=== PATIENT | male | born 1945 | race Caucasian/White ===

== ENCOUNTER 2023-10-08 09:27 | Inpatient (IN) | payer OTHER ==
[2023-10-08] MEDS ORDERED: ACETAMINOPHEN INJECTION 100 ML IVPB ONE ×2 (10:32→18:06)
[2023-10-08] MEDS: ACETAMINOPHEN 1000 MG/100 ML BAG IVPB ONE ×2 (10:51→18:08)
[2023-10-08 10:56] LABS: BASO % 0.3 % (0-2.0); HEMATOCRIT 43.9 % (35.4-49); LYMPH % 5.9 % (8-40); MCH 29.7 pg (25.7-33.7); MCHC 34.1 g/dl (32.0-35.9); MEAN CELL VOLUME 87.1 fl (80-96); MEAN PLT VOLUME 8.9 fl (7.5-11.1); MONO % 9.9 % (3.8-10.2); NEUT % 83.9 % (42.8-82.8); PLATELET COUNT 121 10^3/uL (134-434); RBC 5.05 M/mm3 (4.00-5.60); WHITE BLOOD COUNT 18.5 K/mm3 (4.0-10.0)
[2023-10-08 11:01] LABS: VENOUS BASE EXCESS -0.3 mmol/L (-2-2); VENOUS O2 SATURATION 69.5 % (70-80); VENOUS PCO2 41.7 mmHg (38-52); VENOUS PH 7.39 (7.310-7.410)
[2023-10-08 11:04] LABS: INR 1.4 (0.83-1.09); PROTHROMBIN TIME (PATIENT) 16.2 SEC (9.7-13.0)
[2023-10-08 11:06] LABS: ACTIVATED PTT 29.3 SECONDS (25.2-36.5)
[2023-10-08 11:14] LABS: POTASSIUM 4.1 mmol/L (3.5-5.1)
[2023-10-08 11:16] LABS: ALBUMIN 3.5 g/dl (3.4-5.0); BLOOD UREA NITROGEN 14.3 mg/dL (7-18)
[2023-10-08 11:21] LABS: BILIRUBIN,TOTAL 2.3 mg/dL (0.2-1); TOT PROT 6.9 g/dl (6.4-8.2)
[2023-10-08 11:29] LABS: LACTIC ACID 2.2 mmol/L (0.4-2.0)
[2023-10-08] MEDS: SODIUM CHLORIDE 0.9% 500 ML INFUS.BAG IV ONE (12:43)
[2023-10-08] MEDS ORDERED: PIPERACILLIN/TAZOB 4.5 GM 4.5 GM in DEXTROSE 5%-WATER 100 ML IVPB ONE (14:09)
[2023-10-08 14:11] LABS: N-TERMINAL BNP 400.9 pg/ml (5-450)
[2023-10-08] MEDS ORDERED: LACTATED RINGERS SOLUTION 1,000 ML/1,000 ML INFUS.BAG IV SCH (14:15)
[2023-10-08] MEDS ORDERED: PIPERACILLIN/TAZOB 4.5 GM 4.5 GM/100 ML BAG IVPB ONE (14:19)
[2023-10-08 14:49] LABS: EPI CELLS 17 /uL (0-25.1); HYALINE CASTS 4 /uL (0-3.1); PH,URINE 5.5 (5.0-8.0); URINE APPEARANCE CLEAR; URINE BACTERIA 3 /uL (0-1359); URINE BILIRUBIN NEGATIVE (NEGATIVE); URINE COLOR ORANGE; URINE GLUCOSE (UA) NEGATIVE (NEGATIVE); URINE KETONE TRACE (NEGATIVE); URINE LEUK ESTERASE NEGATIVE (NEGATIVE); URINE NITRITE NEGATIVE (NEGATIVE); URINE PROTEIN 2+ (NEGATIVE); URINE RBC 20 /uL (0-23.9); URINE WBC 15 /uL (0-25.8)
[2023-10-08] MEDS ORDERED: BUPIVACAINE HCL/PF 0.25% (2.5MG/ML) 10 ML VIAL ONE (14:50)
[2023-10-08] MEDS ORDERED: PROPOFOL 40 ML ONE (15:43)
[2023-10-08] MEDS ORDERED: SUCCINYLCHOLINE CHLORIDE 200 MG/10 ML SYRINGE ONE (15:43)
[2023-10-08] MEDS ORDERED: MIDAZOLAM HCL 2 MG/2 ML SINGLE DOSE VIAL ONE (15:45)
[2023-10-08] MEDS ORDERED: FENTANYL CITRATE/PF 50 MCG/ML VIAL ONE ×4 (15:45→17:59)
[2023-10-08] MEDS ORDERED: PIPERACILLIN/TAZOBACTAM 3.375 GM VIAL IVPB ONE (15:46)
[2023-10-08] MEDS ORDERED: SUGAMMADEX SODIUM 200 MG/2 ML VIAL ONE ×2 (15:47→17:09)
[2023-10-08] MEDS ORDERED: DEXAMETHASONE SOD PHOSPHATE 4 MG/1 ML VIAL ONE (16:04)
[2023-10-08] MEDS: PIPERACILLIN/TAZOBACTAM 3.375 GM VIAL IVPB ONE (16:09)
[2023-10-08] MEDS ORDERED: ROCURONIUM BROMIDE 50 MG/5 ML SYRINGE ONE (16:23)
[2023-10-08] MEDS: BUPIVACAINE HCL/PF 2.5 MG/ML - 30 ML VIAL IJ ONE (16:45)
[2023-10-08] MEDS ORDERED: LACTATED RINGERS SOLUTION 1,000 ML IV SCH (17:45)
[2023-10-08] MEDS ORDERED: ONDANSETRON 4 MG/2 ML VIAL IVPUSH PRN ×2 (17:45→17:53)
[2023-10-08] MEDS: LACTATED RINGERS SOLUTION 1,000 ML IV SCH (18:00)
[2023-10-08] MEDS: ACETAMINOPHEN 1000 MG/100 ML BAG IVPB SCH (18:08)
[2023-10-08] MEDS ORDERED: MUPIROCIN 2% TOPICAL OINTMENT FOR DECOLONIZATION NS SCH (22:00)
[2023-10-08] MEDS ORDERED: CHLORHEXIDINE GLUCONATE 4% CLEANSER FOR DECOLONIZATION TP SCH (22:00)
[2023-10-08] MEDS: TAMSULOSIN HCL 0.4 MG CAP PO ONE (22:11)
[2023-10-08] MEDS: MUPIROCIN 2% TOPICAL OINTMENT FOR DECOLONIZATION NS SCH (22:11)
[2023-10-08] MEDS: CHLORHEXIDINE GLUCONATE 4% CLEANSER FOR DECOLONIZATION TP SCH (22:12)
[2023-10-08] MEDS: HEPARIN NA (PORCINE) 5,000 UNITS/ML 1ML VIAL SQ SCH (22:12)
[2023-10-08] MEDS: PIPERACILLIN/TAZOB 4.5 GM 4.5 GM in DEXTROSE 5%-WATER 100 ML IVPB SCH (23:59)
[2023-10-09 06:21] VITALS: BMI 50.6
[2023-10-09 06:37] LABS: BASO % 0.2 % (0-2.0); HEMATOCRIT 42.7 % (35.4-49); HEMOGLOBIN 14.1 GM/dL (11.7-16.9); LYMPH % 3.6 % (8-40); MCH 29.3 pg (25.7-33.7); MCHC 33.1 g/dl (32.0-35.9); MEAN CELL VOLUME 88.5 fl (80-96); MEAN PLT VOLUME 9.1 fl (7.5-11.1); MONO % 5.6 % (3.8-10.2); NEUT % 90.6 % (42.8-82.8); PLATELET COUNT 109 10^3/uL (134-434); RBC 4.82 M/mm3 (4.00-5.60); RDW 14.3 % (11.9-15.9); WHITE BLOOD COUNT 12.6 K/mm3 (4.0-10.0)
[2023-10-09 07:10] LABS: POTASSIUM 4.1 mmol/L (3.5-5.1)
[2023-10-09 07:13] LABS: BLOOD UREA NITROGEN 10.7 mg/dL (7-18); CALCIUM 8.3 mg/dL (8.5-10.1)
[2023-10-09 07:14] LABS: MAGNESIUM 2.5 mg/dL (1.8-2.4)
[2023-10-09 07:16] LABS: CREATININE 0.7 mg/dL (0.55-1.3); PHOSPHOROUS 2.6 mg/dL (2.5-4.9)
[2023-10-09] MEDS: ATORVASTATIN CA 10 MG TABLET (FP) PO SCH (09:49)
[2023-10-09] MEDS: MAGNESIUM OXIDE 400 MG TABLET (FP) PO SCH (09:49)
[2023-10-09] MEDS: METOPROLOL TARTRATE 50 MG TABLET (FP) PO SCH (09:49)
[2023-10-09] MEDS: ASPIRIN COATED 81 MG TABLET.EC PO SCH (09:49)
[2023-10-09] MEDS: PANTOPRAZOLE 20 MG TABLET PO SCH (09:50)
[2023-10-09] MEDS: amLODIPine BESYLATE 5 MG TABLET (FP) PO SCH (09:50)
[2023-10-09] MEDS ORDERED: PATIENT'S OWN MEDICATION (NON-FORMULARY) (Amlodipine/Atorvastatin [Amlodipine-Atorvast 5-1 PO SCH (10:00)
[2023-10-09] MEDS ORDERED: ALBUTEROL SO4 2.5/IPRATROPIUM 0.5 INH SOL 3 ML VIAL.NEB. NEB PRN (11:18)
[2023-10-09] MEDS ORDERED: ONDANSETRON 4 MG/2 ML VIAL IVPUSH PRN (17:29)
[2023-10-09] MEDS: PIPERACILLIN/TAZOB 4.5 GM 4.5 GM in DEXTROSE 5%-WATER 100 ML IVPB SCH (22:09)
[2023-10-09] MEDS: HEPARIN NA (PORCINE) 5,000 UNITS/ML 1ML VIAL SQ SCH (22:09)
[2023-10-10] MEDS: ACETAMINOPHEN 1000 MG/100 ML BAG IVPB ONE (03:36)
[2023-10-10] MEDS ORDERED: AMOX TR/POT CLAV 875MG/125MG TABLETS (FP) PO SCH (08:00)
[2023-10-10] MEDS: METOPROLOL TARTRATE 50 MG TABLET (FP) PO SCH (09:25)
[2023-10-10] MEDS: MAGNESIUM OXIDE 400 MG TABLET (FP) PO SCH (09:25)
[2023-10-10] MEDS: ASPIRIN COATED 81 MG TABLET.EC PO SCH (09:25)
[2023-10-10] MEDS: PANTOPRAZOLE 20 MG TABLET PO SCH (09:26)
[2023-10-10] MEDS: amLODIPine BESYLATE 5 MG TABLET (FP) PO SCH (09:26)
[2023-10-10] MEDS: ATORVASTATIN CA 10 MG TABLET (FP) PO SCH (09:26)
[2023-10-10 09:32] LABS: EOS % 0.5 % (0-4.5); HEMOGLOBIN 13.7 GM/dL (11.7-16.9); LYMPH % 8.8 % (8-40); MCH 29.9 pg (25.7-33.7); MCHC 34.2 g/dl (32.0-35.9); MEAN CELL VOLUME 87.4 fl (80-96); MEAN PLT VOLUME 9.1 fl (7.5-11.1); MONO % 6.5 % (3.8-10.2); NEUT % 84.2 % (42.8-82.8); PLATELET COUNT 145 10^3/uL (134-434); RBC 4.58 M/mm3 (4.00-5.60); RDW 14.1 % (11.9-15.9); WHITE BLOOD COUNT 11.1 K/mm3 (4.0-10.0)
[2023-10-10 09:59] LABS: POTASSIUM 4.2 mmol/L (3.5-5.1)
[2023-10-10 10:09] LABS: CALCIUM 8.5 mg/dL (8.5-10.1)
[2023-10-10 10:10] LABS: BLOOD UREA NITROGEN 14.7 mg/dL (7-18); MAGNESIUM 2.5 mg/dL (1.8-2.4)
[2023-10-10 10:14] LABS: BILIRUBIN,TOTAL 0.9 mg/dL (0.2-1); CREATININE 0.7 mg/dL (0.55-1.3); TOT PROT 6.1 g/dl (6.4-8.2)
[2023-10-10 10:59] LABS: ALBUMIN 2.8 g/dl (3.4-5.0)
[2023-10-10] MEDS ORDERED: LIDOCAINE 5% TOPICAL PATCH TP SCH (11:45)
[2023-10-10] MEDS: ACETAMINOPHEN 1000 MG/100 ML BAG IVPB PRN (11:53)
[2023-10-10] MEDS: TAMSULOSIN HCL 0.4 MG CAP PO ONE (11:54)
[2023-10-10] MEDS: LIDOCAINE 4% PATCH TP SCH (11:54)
[2023-10-10] MEDS: LIDOCAINE PATCH REMOVAL MC SCH (22:26)
[2023-10-11 08:22] LABS: HEMATOCRIT 40.1 % (35.4-49); HEMOGLOBIN 13.5 GM/dL (11.7-16.9); MCH 29.7 pg (25.7-33.7); MCHC 33.7 g/dl (32.0-35.9); MEAN CELL VOLUME 88.2 fl (80-96); MEAN PLT VOLUME 8.9 fl (7.5-11.1); PLATELET COUNT 145 10^3/uL (134-434); RBC 4.54 M/mm3 (4.00-5.60); RDW 13.5 % (11.9-15.9); WHITE BLOOD COUNT 8.2 K/mm3 (4.0-10.0)
[2023-10-11 08:39] LABS: POTASSIUM 4.1 mmol/L (3.5-5.1)
[2023-10-11 08:42] LABS: CALCIUM 8.8 mg/dL (8.5-10.1)
[2023-10-11 08:43] LABS: ALBUMIN 2.7 g/dl (3.4-5.0); BLOOD UREA NITROGEN 12.7 mg/dL (7-18); MAGNESIUM 2.3 mg/dL (1.8-2.4)
[2023-10-11 08:45] LABS: CREATININE 0.7 mg/dL (0.55-1.3)
[2023-10-11 08:46] LABS: BILIRUBIN,TOTAL 0.8 mg/dL (0.2-1); TOT PROT 5.8 g/dl (6.4-8.2)
[2023-10-11] MEDS: TAMSULOSIN HCL 0.4 MG CAP PO SCH (09:27)
[2023-10-11] MEDS: ACETAMINOPHEN 325 MG TABLET (FP) PO SCH (11:56)
[2023-10-11 12:29] VITALS: RESP 18
[2023-10-11 15:18] VITALS: BP 154/71; PULSE 84; TEMP 98.3
[2023-10-11] MEDS: AMOX TR/POT CLAV 500MG/125MG TABLETS (FP) PO SCH (17:37)
== END 2023-10-11 17:50 | disposition home health service (06) | DRG 398 ==
LOC: JER 09:27 → JERBED 14:11 → JICU 19:36 → J8W 10-09 17:28
PROVIDERS: ADMIT Internal Medicine; ATTEND Nurse Practitioner Family
PROC: 0W9G40Z Drainage of Peritoneal Cavity with Drainage Device, Percutaneous Endoscopic Approach (ICD-10-PCS; 2023-10-08)
PROC: 0DTJ4ZZ Resection of Appendix, Percutaneous Endoscopic Approach (ICD-10-PCS; principal; 2023-10-08 15:00)
DX: K35.211 Acute appendicitis with generalized peritonitis, with perforation and abscess (principal); E87.20 Acidosis, unspecified; Z68.43 Body mass index [BMI] 50.0-59.9, adult; E66.01 Morbid (severe) obesity due to excess calories; I10 Essential (primary) hypertension; N40.0 Benign prostatic hyperplasia without lower urinary tract symptoms; R33.9 Retention of urine, unspecified; D72.829 Elevated white blood cell count, unspecified
CPT/HCPCS: 0241U-QW; 36415; 70450-TC; 71045-TC-FY; 71260-TC; 72125-TC; 72170-TC-FY; 74177-TC; 80048; 80053; 81003; 82803; 83605; 83735; 83880; 84100; 84484; 85025; 85610; 85730; 86140; 86850; 86900; 86901; 87040; 87070; 87075; 87076; 87086; 87186; 87205; 88304-TC; 93005; 93010; 93971-TC; 94010; 94760; 97116-GP; 97162-GP; 99285-25; J0131; J1644; Q9967